=== PATIENT | female | born 1955 | race Two or more races ===

== ENCOUNTER 2016-10-09 13:47 | Emergency (ER) | payer OTHER ==
[2016-10-09 14:03] VITALS: BMI 31.1
[2016-10-09 14:51] LABS: BASOPHIL 0.6 % (0-2.0); MCH 29.8 pg (25.7-33.7); MCHC 33.2 g/dl (32.0-36.0); MEAN CELL VOLUME 89.6 fl (80-96); MEAN PLT VOLUME 8.7 fl (7.5-11.1); NEUTROPHILS 40.7 % (42.8-82.8); PLATELET COUNT 159 K/MM3 (134-434); RDW 13.6 % (11.6-15.6); WHITE BLOOD COUNT 6.1 K/mm3 (4.0-10.0)
--- NOTE | 2016-10-09 15:09 | PDOC ---
[id number] No Limitations - History of Present Illness Initial Comments: 10/09/16 16:06 The patient is a 61 year old female with significant past medical history of hypertension, hypercholesterolemia, and diabetes who presents to the emergency department with left sided neck pain that started yesterday. She reports pain in the left side of her neck. Her pain does not radiate and she describes it as tension in the neck. The pain is worse with movement of the neck from side to side. She has a difficult time describing her neck pain but states it is a "weird" sensation. She reports a mild associated headache. She also states that she has an inflammation in her right hand and she feels as though her fingers are swollen. She reports episodes where her vision is off however she has a hard time describing her symptoms. The patient denies any associated chest pain or shortness of breath. She denies any abdominal pain, nausea, or vomiting. She denies recent illness, fevers, and chills. <Rosemarie Santos - Last Filed: 10/09/16 16:54> <Ilene Stanton - Last Filed: 10/11/16 07:51> - General Chief Complaint: Blood Pressure Problem Stated Complaint: CHEST PAIN Time Seen by Provider: 10/09/16 14:40 Past History <Rosemarie Santos - Last Filed: 10/09/16 16:54> - Past Medical History Diabetes: Yes HTN: Yes Hypercholesterolemia: Yes Suicide Attempt (Hx): No - Surgical History Cholecystectomy: Yes - Psycho/Social/Smoking Cessation Hx Suicidal Ideation: No Smoking History: Never smoked Hx Alcohol Use: No Drug/Substance Use Hx: No Substance Use Type: None <Ilene Stanton - Last Filed: 10/11/16 07:51> - Past Medical History Allergies/Adverse Reactions: Allergies Allergy/AdvReac Type Severity Reaction Status Date / Time No Known Allergies Allergy Verified 10/09/16 14:04 Home Medications: Ambulatory Orders Atenolol [Tenormin -] 100 mg PO DAILY 09/30/14 Metformin HCl [Glucophage -] 500 mg PO BID 09/30/14 Simvastatin [Zocor -] 40 mg PO HS 09/30/14 Review of Systems - Review of Systems Able to Perform ROS?: Yes Comments:: 10/09/16 16:06 GENERAL/CONSTITUTIONAL: No fever or chills. No weakness. HEAD, EYES, EARS, NOSE AND THROAT: No change in vision. No ear pain or discharge. No sore throat. CARDIOVASCULAR: No chest pain or shortness of breath. RESPIRATORY: No cough, wheezing, or hemoptysis. GASTROINTESTINAL: No nausea, vomiting, diarrhea or constipation. GENITOURINARY: No dysuria, frequency, or change in urination. MUSCULOSKELETAL: +Neck pain, +right hand pain/swelling. No joint or muscle swelling or pain. No back pain. SKIN: No rash NEUROLOGIC: +Headache. No vertigo, loss of consciousness, or change in strength/ sensation. ENDOCRINE: No increased thirst. No abnormal weight change. HEMATOLOGIC/LYMPHATIC: No anemia, easy bleeding, or history of blood clots. ALLERGIC/IMMUNOLOGIC: No hives or skin allergy. <Rosemarie Santos - Last Filed: 10/09/16 16:54> *Physical Exam - Vital Signs Last Vital Signs Temp Pulse Resp BP Pulse Ox 63 18 189/108 95 10/09/16 13:59 10/09/16 13:59 10/09/16 13:59 10/09/16 13:59 - Physical Exam Comments: 10/09/16 16:06 GENERAL: Awake, alert, and fully oriented, in no acute distress HEAD: No signs of trauma EYES: PERRLA, EOMI, sclera anicteric, conjunctiva clear ENT: Auricles normal inspection, hearing grossly normal, nares patent, oropharynx clear without exudates. Moist mucosa NECK: Normal ROM, supple, no lymphadenopathy, JVD, or masses LUNGS: Breath sounds equal, clear to auscultation bilaterally. No wheezes, and no crackles HEART: Regular rate and rhythm, normal S1 and S2, no murmurs, rubs or gallops ABDOMEN: Soft, nontender, normoactive bowel sounds. No guarding, no rebound. No masses EXTREMITIES: Normal range of motion, no edema. No clubbing or cyanosis. No cords, erythema, or tenderness NEUROLOGICAL: Cranial nerves II through XII grossly intact. Normal speech, normal gait SKIN: Warm, Dry, normal turgor, no rashes or lesions noted. <Rosemarie Santos - Last Filed: 10/09/16 16:54> - Vital Signs Last Vital Signs Temp Pulse Resp BP Pulse Ox 63 18 189/108 95 10/09/16 13:59 10/09/16 13:59 10/09/16 13:59 10/09/16 13:59 <Ilene Stanton - Last Filed: 10/11/16 07:51> ED Treatment Course - LABORATORY CBC & Chemistry Diagram: 10/09/16 14:47 10/09/16 14:47 - ADDITIONAL ORDERS Additional order review: Laboratory Results 10/09/16 14:47 Sodium 141 Potassium 3.9 Chloride 103 Carbon Dioxide 30 Anion Gap 8 BUN 12 Creatinine 0.7 Creat Clearance w eGFR > 60 Random Glucose 100 Calcium 9.3 Total Bilirubin 0.3 AST 55 H D ALT 59 D Alkaline Phosphatase 78 Creatine Kinase 205 H D CK-MB (CK-2) 1.127 Troponin I < 0.02 Total Protein 8.6 H Albumin 4.0 10/09/16 14:47 RBC 4.78 MCV 89.6 MCHC 33.2 RDW 13.6 MPV 8.7 Neutrophils % 40.7 L Lymphocytes % 48.7 H Monocytes % 6.0 Eosinophils % 4.0 Basophils % 0.6 <Rosemarie Santos - Last Filed: 10/09/16 16:54> - LABORATORY CBC & Chemistry Diagram: 10/09/16 14:47 10/09/16 14:47 - ADDITIONAL ORDERS Additional order review: 10/09/16 14:47 RBC 4.78 MCV 89.6 MCHC 33.2 RDW 13.6 MPV 8.7 Neutrophils % 40.7 L Lymphocytes % 48.7 H Monocytes % 6.0 Eosinophils % 4.0 Basophils % 0.6 <Ilene Stanton - Last Filed: 10/11/16 07:51> Medical Decision Making - Medical Decision Making 10/09/16 17:56 Discussion with patient at bedside. She has had similar symptoms 2 years ago and 1 year ago. She was evaluated by a risk professional 1 year ago, but cannot recall the name. She states that she had a complete workup including a negative stress test. Will attempt to find out who the risk professional was, as then she can arrange outpatient f/u appointment. 10/09/16 18:01 Pt given a list of cardiologists- she recalled seeing [facility] in the past. <Ilene Stanton - Last Filed: 10/11/16 07:51> *DC/Admit/Observation/Transfer - Attestations Scribe Attestion: 10/09/16 16:06 Documentation prepared by Rosemarie Santos, acting as caregivers non medical for Ilene Stanton MD. <Rosemarie Santos - Last Filed: 10/09/16 16:54> - Discharge Dispostion Admit: No <Ilene Stanton - Last Filed: 10/11/16 07:51> Diagnosis at time of Disposition: Chest pain Qualifiers: Chest pain type: unspecified Qualified Code(s): R07.9 - Chest pain, unspecified - Discharge Dispostion Disposition: HOME Condition at time of disposition: Stable - Referrals Referrals: Jesus Aj MD [Staff Physician] - Jonatan Gomez [Primary Care Provider] - - Patient Instructions Printed Discharge Instructions: DI for Atypical Chest Pain
[2016-10-09 15:19] LABS: ANION GAP 8 (8-16); BILIRUBIN,TOTAL 0.3 mg/dL (0.2-1.0); CALCIUM 9.3 mg/dL (8.5-10.1); CO2 30 mmol/L (21-32); CREATININE 0.7 mg/dL (0.55-1.02); GLUCOSE,RANDOM 100 mg/dL (74-106); SGOT/AST 55 U/L (15-37); SGPT/ALT 59 U/L (12-78); TOT PROT 8.6 g/dl (6.4-8.2)
[2016-10-09 15:21] LABS: ALK PHOS 78 U/L (45-117); TROPONIN I < 0.02 ng/ml (0.00-0.05)
[2016-10-09 18:06] VITALS: BP 154/91; PULSE 50
--- NOTE | 2016-10-10 13:52 | EKG ---
Test Reason : Blood Pressure : / mmHG Vent. Rate : 059 BPM Atrial Rate : 059 BPM P-R Int : 196 ms QRS Dur : 096 ms QT Int : 416 ms P-R-T Axes : 044 -26 024 degrees QTc Int : 411 ms SINUS BRADYCARDIA POSSIBLE LEFT ATRIAL ENLARGEMENT LEFT VENTRICULAR HYPERTROPHY CANNOT RULE OUT SEPTAL INFARCT , AGE UNDETERMINED ABNORMAL ECG WHEN COMPARED WITH ECG OF 30-SEP-2014 13:04, NO SIGNIFICANT CHANGE WAS FOUND Confirmed by JACKLYN DOUGLAS, RENETTA ([id number]) on 10/10/2016 1:52:17 PM Referred By: Confirmed By:RENETTA VILLASENOR MD
== END 2016-10-09 18:18 | disposition home or self-care (01) ==
LOC: JER 13:47
DX: R07.9 Chest pain, unspecified (principal); R51 Headache; M79.89 Other specified soft tissue disorders; I10 Essential (primary) hypertension; E11.9 Type 2 diabetes mellitus without complications; E78.00 Pure hypercholesterolemia, unspecified
CPT/HCPCS: 36415; 71010-TC; 80053; 82550; 82553; 84484; 85025; 93005; 93010; 99282-25

== ENCOUNTER 2019-07-27 22:47 | Emergency (ER) | payer OTHER ==
[2019-07-27 22:55] VITALS: BP 161/81; PULSE 70; TEMP 97.5; BMI 27.3
--- NOTE | 2019-07-27 23:09 | PDOC ---
History of Present Illness - General Chief Complaint: Lightheaded Stated Complaint: DIZZY Time Seen by Provider: 07/27/19 23:08 - History of Present Illness Initial Comments: Barbara Hunt is a 63yo woman with a PMH of HTN, HLD, DM who presents with an episode of dizziness today. She reports that she was on the phone when she started to feel lightheaded and as though she could not keep her balance. The symptoms lasted for only a minute or two. Ms Hunt denies the sensation of motion or spinning, and she did not have any associated nausea or vomiting. She has had similar episodes in the past, and she says that they are generally very brief. She has never mentioned the dizziness to her PMD and has never been evaluated. Ms Hunt denies any headache, fever, vision or hearing changes, AMS, neck pain/stiffness, congestion, tinnitus, difficulty breathing, chest pain, or other symptoms associated with the episodes of dizziness. Past History - Past Medical History Allergies/Adverse Reactions: Allergies Allergy/AdvReac Type Severity Reaction Status Date / Time No Known Allergies Allergy Verified 10/09/16 14:04 Home Medications: Ambulatory Orders Atenolol [Tenormin -] 100 mg PO DAILY 09/30/14 Simvastatin [Zocor -] 40 mg PO HS 09/30/14 metFORMIN HCL [Glucophage -] 500 mg PO BID 09/30/14 Diabetes: Yes HTN: Yes Hypercholesterolemia: Yes - Surgical History Cholecystectomy: Yes - Psycho Social/Smoking Cessation Hx Smoking History: Never smoked Hx Alcohol Use: No Drug/Substance Use Hx: No Substance Use Type: None Review of Systems - Review of Systems Comments:: General: No fevers, no chills, no weight or appetite change, no malaise HEENT: No changes in vision, no changes in hearing, no congestion, no sore throat CV: No chest pain, no palpitations, no LE edema Pulm: No SOB, no cough, no wheezing GI: No nausea or vomiting, no change in bowel habits, no melena : No frequency, no urgency, no dysuria Musc: No back pain, no joint swelling, no recent injury Skin: No rash, no lesions, no erythema Endo: No excessive thirst, no heat/cold intolerance Heme: No unusual bruising or bleeding, no swollen glands Neuro: No syncope, no numbness/tingling, no focal weakness. See HPI Vasc: No claudication Psych: No recent change in mood, no SI or HI *Physical Exam - Vital Signs Last Vital Signs Temp Pulse Resp BP Pulse Ox 97.5 F L 70 20 161/81 99 07/27/19 22:48 07/27/19 22:48 07/27/19 22:48 07/27/19 22:48 07/27/19 22:48 - Physical Exam General: Comfortable, no acute distress HEENT: Atraumatic, PERRL, EOMI, no nystagmus, MMM, voice normal, normal neck ROM Cards: RRR, no murmur appreciated Pulm: Comfortable on room air, clear to auscultation bilaterally Abd: Soft, nontender, nondistended Ext: Atraumatic. No LE edema. ROM intact. WWP Skin: Normal color, no rashes or lesions Neuro: A&Ox3, CN grossly intact, normal speech, motor/sensory grossly intact and symmetric, walks with steady gait, no ataxia Psych: Mood appropriate to situation ED Treatment Course - LABORATORY CBC & Chemistry Diagram: 07/27/19 23:30 07/27/19 23:30 Medical Decision Making - Medical Decision Making 07/27/19 23:09 Barbara Hunt is a 63yo woman with a PMH of HTN, HLD, DM who presents with an episode of lightheadedness and loss of balance this evening that lasted a minute or two. She has had similar episodes in the past several times over the past few months. - Benign exam, no neurological deficits - Possible pre-syncope, but unclear. Symptoms have resolved and pt is currently asymptomatic - CBC, CMP, UA, trop, EKG for evaluation - IVF for possible mild dehydration 07/28/19 01:18 - Labs reviewed. No concerning abnormalities - Pt now feeling well - EKG w/ NSR, hR 61, MA 108, Normal QRS and QTc. No ST abnormalities - Pt requesting to be discharged home. Will give neurologist info for follow up but recommending that pt follow up with her PMD within the next few days if symptoms continue. Pt understands and agrees Discussed with Dr Rusty Kumar PGY2 Discharge - Discharge Information Problems reviewed: Yes Clinical Impression/Diagnosis: Dizzy spells Condition: Stable Disposition: HOME - Admission No - Follow up/Referral Referrals: Miguel Wilson MD [Primary Care Provider] - Rosalino Obando MD [Staff Physician] - - Patient Discharge Instructions Patient Printed Discharge Instructions: DI for Dizziness-Nonvertigo Additional Instructions: Discharge Instructions: You were seen in the emergency department for dizziness. You had blood tests and an EKG, which did not show any concerning findings. Home Care: - Continue to take all of your regular medications - Make sure you are staying well hydrated; drink plenty of fluids - Stand slowly and hold onto something if you are feeling dizzy - Follow up with your regular doctor within the next 2-3 days if you continue to have symptoms. - You have been given contact information for a neurologist, Dr Obando. You may call to make an appointment for follow up within the next 1-2 weeks for evaluation of your symptoms - Seek immediate care for worsening symptoms, any one-sided weakness, changes in vision or speech, numbness/tingling, fall, head injury, loss of consciousness , or any other medical emergency. - Post Discharge Activity
[2019-07-27] MEDS ORDERED: SODIUM CHLORIDE 0.9% 500 ML INFUS.BAG IV ONE (23:24)
--- NOTE | 2019-07-27 23:27 | PDOC ---
Attending Attestation - Resident Resident Name: Rosemarie Kumar - ED Attending Attestation I have performed the following: I have examined & evaluated the patient, The case was reviewed & discussed with the resident, I agree w/resident's findings & plan, Exceptions are as noted - HPI HPI: 07/27/19 23:26 63y F hx of htn, hl, presents with lightheadedness. Pt notes that she intermittently feels lightheaded for seconds at a time, feeling alitle off balance. She has been feeling similar epiodes occasionally for 1-2 months, but it never bohered her enough to mention to her PMD. P denies any associated sob, cp, headache, palpitations, n/v, diaphoresis. pt denies any recent illness, fever/chills, hemoptysis, diarrhea, melena, bpr, increased leg swelling or cough. Pt currently asymptomatic. Physical Exam GENERAL: The patient is awake, alert, and fully oriented, Nontoxic - in no acute distress. HEAD: Normocephalic, atraumatic. EYES: extraocular movements intact, sclera anicteric, conjunctiva clear. ENT: Normal voice, Moist mucous membranes. NECK: Normal range of motion, supple LUNGS: Breath sounds equal, clear to auscultation bilaterally. No wheezes, no rhonchi, no rales. HEART: Regular rate and rhythm, normal S1 and S2 without murmur, rub or gallop. ABDOMEN: Soft, nontender, No guarding, no rebound. No CVA tenderness EXTREMITIES: Normal range of motion, trace edema. NEUROLOGICAL: No facial assymetry, Normal speech, PSYCH: Normal mood, normal affect. SKIN: Warm, Dry, normal turgor, differential for the pts symptoms include anemia, metabolic derangement, arrythmia will ck labs, ekg will give fluids - Physicial Exam PE: 07/29/19 02:23 see above - Medical Decision Making 07/28/19 01:15 labs reviewed an unremarkable will dc the pt with outpt fu return precaution were discsused
[2019-07-27 23:53] LABS: BASO % 0.7 % (0-2.0); EOS % 6.1 % (0-4.5); HEMATOCRIT 37.8 % (32.4-45.2); HEMOGLOBIN 12.8 GM/dL (10.7-15.3); LYMPH % 47.8 % (8-40); MCH 30.2 pg (25.7-33.7); MCHC 33.8 g/dl (32.0-36.0); MEAN CELL VOLUME 89.4 fl (80-96); MONO % 7.8 % (3.8-10.2); NEUT % 37.6 % (42.8-82.8); PH,URINE 7.5 (5.0-8.0); PLATELET COUNT 156 K/MM3 (134-434); RBC 4.23 M/mm3 (3.60-5.2); RDW 13.6 % (11.6-15.6); URINE APPEARANCE CLEAR; URINE BILIRUBIN NEGATIVE (NEGATIVE); URINE COLOR YELLOW; URINE GLUCOSE (UA) NEGATIVE (NEGATIVE); URINE KETONE NEGATIVE (NEGATIVE); URINE LEUK ESTERASE NEGATIVE (NEGATIVE); URINE NITRITE NEGATIVE (NEGATIVE); URINE PROTEIN NEGATIVE (NEGATIVE); URINE UROBILINOGEN 0.2 mg/dL (0.2-1.0); WHITE BLOOD COUNT 5.1 K/mm3 (4.0-10.0)
[2019-07-28 00:19] LABS: ALBUMIN 3.7 g/dl (3.4-5.0); ALK PHOS 51 U/L (45-117); ANION GAP 7 MMOL/L (8-16); BILIRUBIN,TOTAL 0.3 mg/dL (0.2-1); BLOOD UREA NITROGEN 10.8 mg/dL (7-18); CALCIUM 8.9 mg/dL (8.5-10.1); CHLORIDE 106 mmol/L (98-107); CO2 27 mmol/L (21-32); CREATININE 0.7 mg/dL (0.55-1.3); GLUCOSE,RANDOM 98 mg/dL (74-106); SGOT/AST 34 U/L (15-37); SGPT/ALT 35 U/L (13-61); SODIUM 139 mmol/L (136-145); TOT PROT 7.5 g/dl (6.4-8.2)
--- NOTE | 2019-07-28 17:36 | EKG ---
Test Reason : Blood Pressure : / mmHG Vent. Rate : 061 BPM Atrial Rate : 061 BPM P-R Int : 208 ms QRS Dur : 100 ms QT Int : 428 ms P-R-T Axes : 057 -20 019 degrees QTc Int : 430 ms NORMAL SINUS RHYTHM MODERATE VOLTAGE CRITERIA FOR LVH, MAY BE NORMAL VARIANT ABNORMAL ECG WHEN COMPARED WITH ECG OF 09-OCT-2016 12:59, NO SIGNIFICANT CHANGE WAS FOUND Confirmed by PIETRO DOUGLAS, ANGELITA ([id number]) on 07/28/2019 5:36:12 PM Referred By: Confirmed By:ANGELITA WESTBROOK MD
== END 2019-07-28 01:36 | disposition home or self-care (01) ==
LOC: JER 22:47
PROC: 3E0337Z Introduction of Electrolytic and Water Balance Substance into Peripheral Vein, Percutaneous Approach (ICD-10-PCS; principal; 2019-07-27)
DX: R42 Dizziness and giddiness (principal); I10 Essential (primary) hypertension; E78.5 Hyperlipidemia, unspecified; E11.9 Type 2 diabetes mellitus without complications; E78.00 Pure hypercholesterolemia, unspecified
CPT/HCPCS: 36415; 80053; 81003; 82550; 82553; 84484; 85025; 87077; 87086; 93005; 93010; 99283-25

== ENCOUNTER 2022-03-04 03:59 | Day surgery (SDC) | payer MEDICARE ==
[2022-03-01 08:28] VITALS: BMI 27.3
[2022-03-04 09:24] VITALS: RESP 20; TEMP 98.2
[2022-03-04] MEDS ORDERED: MIDAZOLAM HCL 2 MG/2 ML SINGLE DOSE VIAL ONE (12:26)
[2022-03-04 13:49] VITALS: BP 113/66; PULSE 70
== END 2022-03-04 14:52 | disposition home or self-care (01) ==
LOC: JASU-SURG 03:59
PROVIDERS: ATTEND Urology
PROC: 0TF3XZZ Fragmentation in Right Kidney Pelvis, External Approach (ICD-10-PCS; principal; 2022-03-04 11:30)
DX: N20.0 Calculus of kidney (principal); I10 Essential (primary) hypertension; E11.9 Type 2 diabetes mellitus without complications; Z79.84 Long term (current) use of oral hypoglycemic drugs
CPT/HCPCS: 82962

== ENCOUNTER 2024-06-01 13:54 | Emergency (ER) | payer MEDICARE, OTHER ==
[2024-06-01 14:00] VITALS: BP 158/77; PULSE 83; RESP 16; TEMP 97.6; BMI 20.9
[2024-06-01 15:35] LABS: BASO % 0.6 % (0-2.0); HEMATOCRIT 39.9 % (32.4-45.2); HEMOGLOBIN 13.3 GM/dL (10.7-15.3); LYMPH % 39.1 % (8-40); MCH 29.8 pg (25.7-33.7); MCHC 33.4 g/dl (32.0-36.0); MEAN CELL VOLUME 89.1 fl (80-96); MEAN PLT VOLUME 8.4 fl (7.5-11.1); MONO % 6.4 % (3.8-10.2); NEUT % 48.9 % (42.8-82.8); PLATELET COUNT 167 10^3/uL (134-434); RBC 4.47 M/mm3 (3.60-5.2); RDW 14.9 % (11.6-15.6); WHITE BLOOD COUNT 5.4 K/mm3 (4.0-10.0)
[2024-06-01 15:42] LABS: EPI CELLS 5 /uL (0-25.1); HYALINE CASTS 0 /uL (0-3.1); URINE APPEARANCE CLEAR; URINE BACTERIA 248 /uL (0-1359); URINE BILIRUBIN NEGATIVE (NEGATIVE); URINE COLOR YELLOW; URINE GLUCOSE (UA) NEGATIVE (NEGATIVE); URINE KETONE NEGATIVE (NEGATIVE); URINE LEUK ESTERASE 1+ (NEGATIVE); URINE NITRITE NEGATIVE (NEGATIVE); URINE PROTEIN NEGATIVE (NEGATIVE); URINE RBC 8 /uL (0-23.9); URINE UROBILINOGEN 0.2 mg/dL (0.2-1.0); URINE WBC 15 /uL (0-25.8)
[2024-06-01 16:00] LABS: POTASSIUM 3.8 mmol/L (3.5-5.1)
[2024-06-01 16:02] LABS: ALBUMIN 4.2 g/dl (3.4-5.0); BLOOD UREA NITROGEN 18.1 mg/dL (7-18); MAGNESIUM 2.2 mg/dL (1.8-2.4)
[2024-06-01 16:05] LABS: CREATININE 0.7 mg/dL (0.55-1.3); PHOSPHOROUS 3.9 mg/dL (2.5-4.9)
[2024-06-01 16:06] LABS: BILIRUBIN,TOTAL 0.6 mg/dL (0.2-1)
[2024-06-01] MEDS ORDERED: CEPHALEXIN MONOHYDRATE 500 MG CAPSULE (UD) ONE (16:26)
[2024-06-01] MEDS: CEPHALEXIN MONOHYDRATE 500 MG CAPSULE (UD) PO ONE (16:30)
[2024-06-01 17:30] LABS: HIV INTERPRETATION NEGATIVE (NEGATIVE)
== END 2024-06-01 16:34 | disposition home or self-care (01) ==
LOC: JER 13:54
DX: R63.0 Anorexia (principal); R63.4 Abnormal weight loss; N39.0 Urinary tract infection, site not specified; R00.2 Palpitations
CPT/HCPCS: 36415; 71046-TC-FY; 80053; 81003; 83735; 84100; 84443; 84484; 85025; 86803; 87086; 87186; 87389; 93005; 93010; 99285-25